=== PATIENT | male | born 1960 | race Caucasian/White ===

== ENCOUNTER 2020-08-18 08:00 | Outpatient (CLI) | payer MEDICARE, SELFPAY ==
--- NOTE | ~2020-08-18 | US_ITS ---
EXAMINATION: US right upper quadrant DATE: 08/18/2020 08:29 INDICATION: Hepatitis C. TECHNIQUE: Multiple grayscale and Doppler ultrasound images of the abdomen were obtained. COMPARISON: None FINDINGS: The visualized portions of the head and body of the pancreas are normal. The liver is dalton l without focal lesion. No liver surface nodularity. There is normal flow in main portal vein. The ga llbladder is normal in size. No gallstones or gallbladder wall thickening. There was no sonographic M urphy sign. The common duct is normal and measures 4 mm. IMPRESSION: 1. Normal right upper quadrant ultrasound. Reviewed, dictated and finalized at location A.
== END 2020-08-18 08:01 | disposition home or self-care (01) ==
PROVIDERS: PCP Emergency Medicine; Visit Provider Internal Medicine Infectious Disease
DX: B19.20 Unspecified viral hepatitis C without hepatic coma (principal)
CPT/HCPCS: 76705

== ENCOUNTER 2021-06-25 10:11 | Outpatient (CLI) | payer MEDICARE, SELFPAY ==
--- NOTE | ~2021-06-25 | XR_ITS ---
XR lumbar spine 2-3V 06/25/2021 10:47 Indication: Radiculopathy Procedure: 3 views lumbar spine Comparison: No prior studies for comparison. Findings: There is surgical changes consistent with anterior fusion and discectomy at L4-5 and L5-S1. No fracture, subluxation or dislocation. Prominent lateral marginal osteophytes at L2-3 and L3-4. Sa cral foramen are symmetric. There are facet hypertrophic changes at L4-5 and L5-S1. Impression: 1: Mild lower lumbar spondylosis with L4-5 and L5-S1. Reviewed, dictated and finalized at location A. Impression: 1: Mild lower lumbar spondylosis with L4-5 and L5-S1.
== END 2021-06-25 10:12 | disposition home or self-care (01) ==
LOC: CHSIMG 10:15
PROVIDERS: PCP Family Medicine; Visit Provider Pain Medicine Interventional Pain Medicine
DX: M54.16 Radiculopathy, lumbar region (principal); G89.4 Chronic pain syndrome; F17.210 Nicotine dependence, cigarettes, uncomplicated; M25.519 Pain in unspecified shoulder; F33.1 Major depressive disorder, recurrent, moderate; M46.1 Sacroiliitis, not elsewhere classified; M47.816 Spondylosis without myelopathy or radiculopathy, lumbar region
CPT/HCPCS: 72100

== ENCOUNTER 2022-01-05 07:53 | Outpatient (CLI) | payer MEDICARE, SELFPAY ==
--- NOTE | ~2022-01-05 | MR_ITS ---
EXAMINATION: MR lumbar spine wo con EXAM DATE: 01/05/2022 08:51 INDICATION: Radiculopathy, lumbar region. TECHNIQUE: Multi-sequential, multiplanar MR images of the lumbar spine were obtained without contrast . Sagittal T1, T2, T2 fat saturation images. Axial T2 weighted images. Comparison is made to prior examination from 07/20/2017. FINDINGS: Interbody fusions L4-5 and L5-S1. Probable prior L4 and L5 laminotomies. The vertebral bodi es are aligned in the AP dimension. Vertebral body and disc heights are well-maintained. The conus me dullaris terminates at the L1/2 level and has normal signal intensity and morphology. There are no s uspicious marrow signal abnormalities. Paraspinal soft tissue is unremarkable. Level by level evaluation: T12-L1: Disc does not extend beyond the endplate margin. Facet arthropathy: Mild. Neural foraminal stenosis: No stenosis. Central canal stenosis: No stenosis. L1-L2: Disc does not extend beyond the endplate margin. Facet arthropathy: Mild. Neural foraminal stenosis: No stenosis. Central canal stenosis: No stenosis. L2-L3: There is a minimal diffuse disc bulge. Facet arthropathy: Mild. Neural foraminal stenosis: Mild left. Central canal stenosis: No stenosis. L3-L4: There is a mild diffuse disc bulge. Facet arthropathy: Mild to moderate. Neural foraminal stenosis: Mild left, minimal right. Central canal stenosis: No stenosis. L4-L5: This level is fused. Facet arthropathy: Partially fused. Neural foraminal stenosis: No stenosis. Central canal stenosis: No stenosis. L5-S1: This level is fused. Facet arthropathy: Mild to moderate, but probably partially fused. Neural foraminal stenosis: Mild to moderate right, mild left. Central canal stenosis: No stenosis. Compared to 2017 difficult to appreciate any significant interval change. IMPRESSION: 1. L4-S1 fusion, probable laminotomies. 2. Mild to moderate lumbar arthropathy. Reviewed, dictated and finalized at location G. [employer]
== END 2022-01-05 07:54 ==
PROVIDERS: Visit Provider Pain Medicine Interventional Pain Medicine
DX: M54.17 Radiculopathy, lumbosacral region (principal); Z98.1 Arthrodesis status; M12.88 Other specific arthropathies, not elsewhere classified, other specified site
CPT/HCPCS: 72148

== ENCOUNTER 2022-06-01 07:46 | Outpatient (CLI) | payer MEDICARE, SELFPAY ==
--- NOTE | ~2022-06-01 | XR_ITS ---
EXAMINATION: XR lumbar spine 2-3V, XR sacroiliac joints min 3V DATE: 06/01/2022 08:18 INDICATION: Radiculopathy . Sacroiliitis. TECHNIQUE: 1. Anteroposterior and lateral views of the lumbar spine, and cone-down lateral view of the lumbosacr al junction were obtained. 2. AP and left and right oblique views of the sacroiliac joints were obtained. COMPARISON: Lumbar spine MR dated 01/05/[address] dated 11/23/2013 FINDINGS: Lumbar spine: Instrumented anterior spinal fusion at L4-L5 and L5-S1 with bone graft cages and fixation plate and s crews at both of these solidly fused disc spaces. Likely bilateral hemilaminotomies at L5-S1. Chronic mild anterior wedging of a transitional L1 segment with tiny right-sided hypoplastic riblet. Remaini ng vertebral body heights are normal. No fracture. Disc spaces are normal with a few scattered small endplate osteophytes. Sacroiliac joints: Sacral arches are intact. Mild bilateral sacroiliac osteoarthritis. No erosions to suggest an inflamm atory sacroiliitis. Mild bilateral hip osteoarthritis. IMPRESSION: 1. L4-S1 instrumented anterior spinal fusion. 2. Mild bilateral sacroiliac osteoarthritis. No erosions to suggest inflammatory sacroiliitis. Reviewed, dictated and finalized at location B. IMPRESSION: 1. L4-S1 instrumented anterior spinal fusion. 2. Mild bilateral sacroiliac osteoarthritis. No erosions to suggest inflammator y sacroiliitis.
== END 2022-06-01 07:47 | disposition home or self-care (01) ==
LOC: CHSIMG 07:48
PROVIDERS: PCP Family Medicine; Visit Provider Pain Medicine Interventional Pain Medicine
DX: M54.17 Radiculopathy, lumbosacral region (principal); M46.1 Sacroiliitis, not elsewhere classified; G89.4 Chronic pain syndrome; M25.519 Pain in unspecified shoulder
CPT/HCPCS: 72100; 72202

== ENCOUNTER 2022-09-12 14:59 | Emergency (ER) | payer MEDICARE, SELFPAY ==
--- NOTE | ~2022-09-12 | XR_ITS ---
XR wrist RT w scaphoid 09/12/2022 15:20 Indication: Right wrist pain. Twisting injury. Procedure: 4 views of the right wrist Comparison: No prior studies for comparison. Findings: There is chondrocalcinosis. No acute fracture or traumatic malalignment. No significant sof t tissue abnormality. No foreign bodies. Impression: 1: No acute fracture. 2: Chondrocalcinosis. Reviewed, dictated and finalized at location B. Impression: 1: No acute fracture. 2: Chondrocalcinosis.
[2022-09-12 15:05] VITALS: BP 108/86; PULSE 109; RESP 16; TEMP 36.9
--- NOTE | 2022-09-12 15:10 | ED.GENADULT ---
HPI - General Adult General Chief complaint: Extremity Injury, Upper Stated complaint: Right hand pain Time Seen by Provider: 09/12/22 15:01 History of Present Illness HPI narrative: Chaz is a 62M with a PMH of smoking and coronary artery calcification that presented to the ED with pain in his right wrist. He was using and impact drill and drilling when it kicked back. He had immediate pain and swelling. He has no other injuries or concerns. Related Data Home Medications Medication Instructions Recorded Confirmed hydrocodone 10 mg-acetaminophen 1 tablet PO Q8H PRN 09/29/19 325 mg tablet ([place]) Allergies Allergy/AdvReac Type Severity Reaction Status Date / Time No Known Allergies Allergy Mild Verified 09/12/22 15:09 Review of Systems Review of Systems: All systems reviewed & are unremarkable except as noted in HPI and below PMFSH Past Medical History Medical History Arthritis Surgical History Surgical History H/O hand surgery H/O knee surgery H/O shoulder surgery Previous back surgery Family History Family History Father Malignant neoplasm of prostate Mother Family history of primary malignant neoplasm of liver Social History Social History Smoking status: Current every day smoker Alcohol intake: current Exam Const: General: healthy appearing and no acute distress Nutritional Appearance: well nourished Orientation/consciousness: patient oriented x3 Limitations: no limitations HENMT: Head: normal to inspection Ears: external ears normal Face/Nose/Sinus: Normal external nose present Eyes: Conjunctivae: conjunctivae normal Pupils: Equal, round and reactive pupils present Neck: Neck: normal visual inspection Chest: Chest palpation & inspection: normal inspection of the chest Resp: Effort & Inspection: normal respiratory effort Cardio: Rate: regular rate Skin: General skin exam: normal color Neuro: General: patient oriented x3 and moves all extremities Extrem: Other: Right wirst is TTP on the medial side and a bit swollen. He has sensation in all his fingers and strong radial pulse Psych: Mental Status: mental status grossly normal Course Course Emergency Course: Declined pain meds. XR wrist RT w scaphoid 09/12/2022 15:20 Indication: Right wrist pain. Twisting injury. Procedure: 4 views of the right wrist Comparison: No prior studies for comparison. Findings: There is chondrocalcinosis. No acute fracture or traumatic malalignment. No significant soft tissue abnormality. No foreign bodies. Impression: 1: No acute fracture. 2:? Chondrocalcinosis. Vital Signs Vital signs: Vital Signs Temperature 98.5 F 09/12/22 15:05 Pulse Rate 109 H 09/12/22 15:05 Respiratory Rate 16 09/12/22 15:05 Blood Pressure 108/86 09/12/22 15:05 Temperature 98.5 F 09/12/22 15:05 Pulse Rate 109 H 09/12/22 15:05 Respiratory Rate 16 09/12/22 15:05 Blood Pressure 108/86 09/12/22 15:05 Medical Decision Making Vital Signs Vital Signs: Vital Signs Temperature 98.5 F 09/12/22 15:05 Pulse Rate 109 H 09/12/22 15:05 Respiratory Rate 16 09/12/22 15:05 Blood Pressure 108/86 09/12/22 15:05 Temperature 98.5 F 09/12/22 15:05 Pulse Rate 109 H 09/12/22 15:05 Respiratory Rate 16 09/12/22 15:05 Blood Pressure 108/86 09/12/22 15:05 Discharge Plan Discharge Clinical Impression: Right wrist sprain Patient Disposition: Home, Self-Care Condition: Stable Instructions: Wrist Sprain (ED) Prescriptions: No Action hydrocodone-acetaminophen [[place]] 10-325 mg tablet 1 tablet PO Q8H PRN (Reason: Pain) Rx Instructions: take po TID Follow-up/Referrals: Vane,MD Arcenio [Primary Care Pr
[2022-09-12 15:38] VITALS: BP 108/86; PULSE 109; RESP 16; TEMP 36.9; O2SAT 97
== END 2022-09-12 15:39 | disposition home or self-care (01) ==
PROVIDERS: Emergency Provider Family Medicine; PCP Family Medicine
DX: S63.501A Unspecified sprain of right wrist, initial encounter (principal); W22.8XXA Striking against or struck by other objects, initial encounter
CPT/HCPCS: 73110; 99283

== ENCOUNTER 2023-09-03 10:52 | Outpatient (CLI) | payer MEDICARE, SELFPAY ==
--- NOTE | ~2023-09-03 | XR_ITS ---
Lumbosacral Spine: AP and lateral views Clinical History: Pain COMPARISON: 06/01/2022 Findings: No acute fracture or subluxation identified. There is stable fusion from L4 through S1. Mil d chronic anterior wedging deformity of L1 is present, similar to prior exam. There is moderate to ad vanced facet joint degenerative change at the lower lumbar spine. The sacroiliac joints are normally outlined. Impression: No acute abnormality. Stable postfusion changes from L4 through S1. Stable degenerative changes, as above. Reviewed, dictated and finalized at location M. Impression: No acute abnormality. Stable postfusion changes from L4 through S1. Stable degenerative changes, as above.
== END 2023-09-03 10:53 | disposition home or self-care (01) ==
PROVIDERS: PCP Family Medicine
DX: M47.26 Other spondylosis with radiculopathy, lumbar region (principal); M47.23 Other spondylosis with radiculopathy, cervicothoracic region; M47.22 Other spondylosis with radiculopathy, cervical region; M46.1 Sacroiliitis, not elsewhere classified; F33.1 Major depressive disorder, recurrent, moderate; F17.210 Nicotine dependence, cigarettes, uncomplicated; Z98.1 Arthrodesis status
CPT/HCPCS: 72100

== ENCOUNTER 2023-11-29 00:24 | Day surgery (SDC) | payer MEDICARE, SELFPAY ==
[2023-11-05 13:53] VITALS: BMI 27.4
--- NOTE | 2023-11-27 11:25 | SUR.PREOP ---
Patient called regarding upcoming procedure. Reviewed preop instructions, appointment times, and procedure prep.
[2023-11-29 10:45] VITALS: BP 129/73; PULSE 99; RESP 16; TEMP 35.9; O2SAT 100
[2023-11-29] MEDS: LACTATED RINGERS 1,000 ML 150 ML IV CONT (10:56)
--- NOTE | 2023-11-29 11:35 | P.PNAN_ITS ---
Anes - Initial Pre Proc Eval Procedure: Operation Date: 11/29/23 11:30 Proposed Procedures p Screening Colonoscopy - Severiano Way MD Date/Time: 11/29/23 11:35 Surgeon: Severiano Way MD Pre Op Diagnosis: neoplasm screening Patient Data Age: 63 Gender: M Height: 1.73 m Weight: 85.4 kg Last Vital Signs Temp 96.6 F L 11/29/23 10:45 Pulse 99 11/29/23 10:45 Resp 16 11/29/23 10:45 BP 129/73 11/29/23 10:45 Pulse Ox 100 11/29/23 10:45 O2 Del Method Room Air 11/29/23 10:45 Allergies Allergy/AdvReac Type Severity Reaction Status Date / Time No Known Allergies Allergy Mild Verified 11/29/23 10:44 Home Medications Medication Instructions Recorded Confirmed Type hydrocodone 10 mg-acetaminophen 1 tablet PO Q8H PRN Pain 09/29/19 11/29/23 History 325 mg tablet ([place]) Patient hx anesthesia problems: none Family hx anesthesia problems: none Results Review: All pre-operative results and documents have been reviewed as part of the pre- operative evaluation. [facility] Past Medical History Medical History Arthritis Surgical History Surgical History H/O hand surgery H/O knee surgery H/O shoulder surgery Previous back surgery Family History Family History Father Malignant neoplasm of prostate Mother Family history of primary malignant neoplasm of liver Social History Social History Smoking packs per day: 1 Smoking cigarettes per day: 20.0 Years smoked: 20 Smoking pack-years: 20.00 Smoking status: Current every day smoker Tobacco type: cigarettes Alcohol intake: current Drinks per week: 3 Substance use: current Substance use type: marijuana Other substance usage details: daily Living arrangements: with friend(s) Spiritual care concerns: No Anes - Eval Final PreProcedure Day of Procedure 11/29/23 11:35 Patient weight: obese Heart: regular rate and rhythm Lungs: clear to auscultation Airway: Mallampati scale class II Neurological: alert and oriented Last oral intake: >/= 8 hours ASA classification: III Emergent: no Anesthetic plan: proceed Anesthesia type and monitoring: general GIVS and standard monitoring Results Review: All pre-operative results and documents have been reviewed as part of the pre- operative evaluation. Informed Consent: The patient's anesthetic plan and its attendant risks and benefits were discussed with the patient/family/POA. Questions were solicited and answers provided to the satisfaction of the patient/family/POA.
--- NOTE | 2023-11-29 11:43 | PM.HPGS ---
History of Present Illness History of Present Illness Consent: Risks, benefits, and alternatives have been discussed and questions answered. Patient agrees to proceed with procedure. Chief complaint: neoplasm screening Narrative: Chaz Allen Jr. is a 63 year old male here for first screening colonoscopy Review of Systems Constitutional: Constitutional: Denies headache(s) and Denies weakness Eyes: Eyes: Denies blurry vision ENT: Reports Normal hearing present, Denies headache(s) and Denies neck pain Cardiovascular: Cardiovascular: Denies chest pain and Denies dyspnea Respiratory: Respiratory: Denies dyspnea Gastrointestinal: Gastrointestinal: Reports no additional gastrointestinal complaints Genitourinary: Genitourinary: Denies dysuria Musculoskeletal: Musculoskeletal: Denies neck pain Integumentary/Breasts: Skin/Breast: Denies dry skin Neurologic: Reports Normal hearing present, Denies headache(s) and Denies weakness Psychiatric: Psychiatric: Denies anxiety Endocrine: Endocrine: Denies change in body appearance Hematologic/Lymphatic: Hematologic/Lymphatic: Denies easy bleeding Allergic/Immunologic: Allergic/Immunologic: Denies urticaria [facility] [place] Past Medical History Medical History (Updated 11/29/23 @ 11:[address] MD) Arthritis Colon cancer screening Surgical History Surgical History H/O hand surgery H/O knee surgery H/O shoulder surgery Previous back surgery Family History Family History Father Malignant neoplasm of prostate Mother Family history of primary malignant neoplasm of liver Social History Social History Smoking packs per day: 1 Smoking cigarettes per day: 20.0 Years smoked: 20 Smoking pack-years: 20.00 Smoking status: Current every day smoker Tobacco type: cigarettes Alcohol intake: current Drinks per week: 3 Substance use: current Substance use type: marijuana Other substance usage details: daily Living arrangements: with friend(s) Spiritual care concerns: No Meds Home Medications and Allergies Home Medications Medication Instructions Recorded Confirmed Type hydrocodone 10 mg-acetaminophen 1 tablet PO Q8H PRN Pain 09/29/19 11/29/23 History 325 mg tablet ([place]) Allergies Allergy/AdvReac Type Severity Reaction Status Date / Time No Known Allergies Allergy Mild Verified 11/29/23 10:44 Vital Signs Vital Signs - 24 hr 11/29/23 10:45 Temperature 96.6 F L Pulse Rate 99 Respiratory Rate 16 Blood Pressure 129/73 Pulse Oximetry 100 Oxygen Delivery Room Air Exam Const: General: comfortable and no acute distress HENMT: Face/Nose/Sinus: Normal nares present Eyes: General: appearance normal, both eyes and all related structures Neck: Neck: no JVD Resp: Auscultation: clear to auscultation bilaterally Cardio: Rate: regular rate Rhythm: regular rhythm GI: Inspection: non-distended GI Palp: Yes Soft to palpation Skin: General skin exam: normal color Neuro: General: gait normal Speech: normal speech Extrem: General: normal to inspection Psych: Mental Status: mental status grossly normal Assessment and Plan Assessment and plan (1) Colon cancer screening: Code(s): Z12.11 - Encounter for screening for malignant neoplasm of colon Status: Acute Assessment and Plan: colonoscopy
[2023-11-29 12:13] VITALS: BP 110/76; PULSE 84; RESP 22; O2SAT 96
[2023-11-29 12:23] VITALS: BP 127/81; PULSE 75; RESP 18; O2SAT 99
== END 2023-11-29 12:43 | disposition home or self-care (01) ==
PROVIDERS: PCP Family Medicine; Visit Provider Internal Medicine Gastroenterology
PROC: 0DJD8ZZ Inspection of Lower Intestinal Tract, Via Natural or Artificial Opening Endoscopic (ICD-10-PCS; CPT 45378; principal; 2023-11-29 11:30)
DX: Z12.11 Encounter for screening for malignant neoplasm of colon (principal); D12.2 Benign neoplasm of ascending colon; D12.3 Benign neoplasm of transverse colon; D12.4 Benign neoplasm of descending colon; D12.5 Benign neoplasm of sigmoid colon; F17.210 Nicotine dependence, cigarettes, uncomplicated; F12.90 Cannabis use, unspecified, uncomplicated; E66.9 Obesity, unspecified; Z68.28 Body mass index [BMI] 28.0-28.9, adult
CPT/HCPCS: 45385; 88305; 88342; J2704; J7120

== ENCOUNTER 2024-03-31 14:40 | Emergency (ER) | payer MEDICARE, SELFPAY ==
--- NOTE | ~2024-03-31 | XR_ITS ---
EXAM: XR shoulder RT min 2V DATE: 03/31/2024 15:04 HISTORY: FALL OUT OF TRUCK ONTO SHOULDER,PAIN,LROM . COMPARISON: None available. FINDINGS: Normal mineralization. No acute fracture or dislocation. No lytic or blastic lesion. Chron ic fragmentation of the tip of the acromion may represent an old fracture fragments or less likely a small os acromiale degenerative changes. Mild degenerative change at the AC joint and glenohumeral omar int. No erosion or periosteal change. Soft tissues within normal limits. IMPRESSION: No acute osseous finding in the right shoulder. Reviewed, dictated and finalized at location K.
[2024-03-31 14:39] VITALS: BP 153/92; PULSE 68; RESP 18; TEMP 36.5; O2SAT 99
--- NOTE | 2024-03-31 14:48 | ED.UPPEXIN ---
HPI - Extremity Injury (Upper) General Chief Complaint: Extremity Injury, Upper Stated Complaint: fall, right shoulder injury Source: patient Mode of arrival: ambulatory History of Present Illness HPI narrative: 63 YEARS OLD WHITE MALE LOST HIS BALANCE AND FELL OUT OF THE BACK OF HIS TRUCK WHILE IN A STOP POSITION, LANDED ABOUT 4 FT DOWN ON THE RIGHT SHOULDER. HE DENIES HEAD INJURY, NECK INJURY BACK INJURY OR OTHER INJURIES. COMPLAINING ONLY OF RIGHT SHOULDER PAIN WITH LIMITED RANGE OF MOTION. PATIENT DROVE HIMSELF TO THE EMERGENCY ROOM. Related Data Home Medications Medication Instructions Recorded Confirmed hydrocodone 10 mg-acetaminophen 1 tablet PO Q8H PRN Pain 09/29/19 03/31/24 325 mg tablet ([place]) Allergies Allergy/AdvReac Type Severity Reaction Status Date / Time No Known Allergies Allergy Mild Verified 11/29/23 10:44 Review of Systems Review of Systems: All systems reviewed & are unremarkable except as noted in HPI and below PMFSH Past Medical History Medical History Arthritis Colon cancer screening Surgical History Surgical History H/O hand surgery H/O knee surgery H/O shoulder surgery Previous back surgery Family History Family History Father Malignant neoplasm of prostate Mother Family history of primary malignant neoplasm of liver Social History Social History Smoking packs per day: 1 Smoking cigarettes per day: 20.0 Years smoked: 20 Smoking pack-years: 20.00 Smoking status: Current every day smoker Tobacco type: cigarettes Alcohol intake: current Drinks per week: 3 Substance use: current Substance use type: marijuana Other substance usage details: daily Living arrangements: with friend(s) Spiritual care concerns: No Exam Narrative: GENERAL APPEARANCE: WELL-DEVELOPED, WELL-NOURISHED SKIN: NORMAL COLOR HEAD: NORMOCEPHALIC, NONTRAUMATIC EYES: CLEAR CONJUNCTIVA ENT: OROPHARYNX NORMAL, EARS NORMAL, NOSE NORMAL NECK: SUPPLE, NONTENDER CHEST AND RESPIRATORY: AIRWAY PATENT, NO RESPIRATORY DISTRESS, NO ACCESSORY MUSCLE USE HEART: REGULAR RATE/RHYTHM ABDOMEN: SOFT, NONTENDER, NO ORGANOMEGALY, QUIET BOWEL SOUNDS VASCULAR: NORMAL PERIPHERAL PULSES, NORMAL CAPILLARY REFILL. MUSCULOSKELETAL: RIGHT SHOULDER EXAM SHOWED DIFFUSE TENDERNESS, NO DEFORMITY, NO BRUISES, MODERATE LIMITED RANGE OF MOTION. 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 Critical Care Time Critical Care Time Critical Care Time: No Discharge Plan Discharge Clinical Impression: Contusion of right shoulder Patient Disposition: Home, Self-Care Condition: Stable Instructions: Shoulder Pain (ED) Additional Instructions: RETURN IF SYMPTOMS ARE WORSENING , CALL YOUR FAMILY PHYSICIAN FOR APPOINTMENT, TAKE TYLENOL NEEDED FOR ACHES AND PAIN, CONTINUE HOME MEDICATIONS. ICE PACK 20 MINUTES/HOUR FOR THE NEXT 24 HOURS, TYLENOL, IBUPROFEN NEEDED Prescriptions: No Action hydrocodone-acetaminophen [[place]] 10-325 mg tablet 1 tablet PO Q8H PRN (Reason: Pain) Rx Instructions: take po TID Follow-up/Referrals: Vane,MD Arcenio [Primary Care Provider] -
--- NOTE | 2024-03-31 14:51 | PC.NURSE ---
patient is unable to raise right arm up. no deformity to shoulder noted.
--- NOTE | 2024-03-31 15:00 | PC.NURSE ---
patient taken to xray
[2024-03-31] MEDS: ACETAMINOPHEN 500 MG TABLET 1000 MG PO (15:03)
[2024-03-31] MEDS: IBUPROFEN 400 MG TABLET 800 MG PO (15:03)
== END 2024-03-31 15:33 | disposition home or self-care (01) ==
PROVIDERS: Emergency Provider Emergency Medicine; PCP Family Medicine
DX: S40.011A Contusion of right shoulder, initial encounter (principal); W17.89XA Other fall from one level to another, initial encounter; F17.210 Nicotine dependence, cigarettes, uncomplicated; F12.90 Cannabis use, unspecified, uncomplicated
CPT/HCPCS: 73030; 99283; A9270

== ENCOUNTER 2024-09-01 15:38 | Emergency (ER) | payer MEDICARE, SELFPAY ==
--- NOTE | ~2024-09-01 | XR_ITS ---
EXAMINATION: XR finger 3rd LT min 2V DATE: 09/01/2024 16:09 INDICATION: Left hand third digit laceration. TECHNIQUE: 3 views of left hand third digit were obtained. COMPARISON: None. FINDINGS: Alignment is normal. No fracture. There is mild osteoarthritis of third metacarpophalangeal joint and proximal interphalangeal joint and moderate osteoarthritis of third distal interphalangeal joint. There is heterotopic ossification ulnar to third distal interphalangeal joint. No radiopaque foreign body. IMPRESSION: 1. Polyarticular osteoarthritis. Reviewed, dictated and finalized at location A.
--- NOTE | 2024-09-01 15:42 | ED.GENADULT ---
HPI - General Adult General Chief complaint: Wound/Laceration Stated complaint: LACERATION Time Seen by Provider: 09/01/24 15:42 Source: patient Mode of arrival: other Limitations: no limitations History of Present Illness HPI narrative: 64-year-old white male caught his left nondominant hand long finger in on farm implement / header combine machine. This caused the longitudinal laceration over his 3rd finger PIP joint. Denies any numbness or weakness or loss of function. He is up-to-date on his Tdap. Denies any other injury or other complaints. Related Data Home Medications Medication Instructions Recorded Confirmed nortriptyline 50 mg capsule 50 mg PO DAILY 09/01/24 09/01/24 Allergies Allergy/AdvReac Type Severity Reaction Status Date / Time No Known Allergies Allergy Mild Verified 09/01/24 15:51 Review of Systems Review of Systems: All systems reviewed & are unremarkable except as noted in HPI and below PMFSH Past Medical History Medical History Arthritis Colon cancer screening Surgical History Surgical History H/O hand surgery H/O knee surgery H/O shoulder surgery Previous back surgery Family History Family History Father Malignant neoplasm of prostate Mother Family history of primary malignant neoplasm of liver Social History Social History Smoking packs per day: 1 Smoking cigarettes per day: 20.0 Years smoked: 20 Smoking pack-years: 20.00 Smoking status: Current every day smoker Tobacco type: cigarettes Alcohol intake: current Drinks per week: 3 Substance use: current Substance use type: marijuana Other substance usage details: daily Living arrangements: with friend(s) Spiritual care concerns: No Exam Narrative: White male patient with no apparent distress.? Head normocephalic, atraumatic.? Eyes conjunctiva pink sclera nonicteric.? Extraocular movements are intact.? Ears externally normal.? Left long finger has a 4 cm superficial laceration longitudinally with the center over the PIP joint. No foreign bodies were seen. He has good strong flexion extension of the finger. Light touch and pin point touch is normal. Capillary refills normal. He has full range of motion of all his fingers and hands and wrist. Extremities no cyanosis clubbing or edema.? Skin is warm and dry without rashes or lesions.? Neurological patient is alert and oriented x4.? Motor and sensory grossly intact.? Gait is normal. Course Vital Signs Vital signs: Vital Signs Temperature 36.6 C 09/01/24 15:47 Pulse Rate 99 09/01/24 15:47 Respiratory Rate 18 09/01/24 15:47 Blood Pressure 156/94 H 09/01/24 15:47 Pulse Oximetry 100 09/01/24 15:47 Oxygen Delivery Room Air 09/01/24 15:47 Temperature 36.6 C 09/01/24 15:47 Pulse Rate 99 09/01/24 15:47 Respiratory Rate 18 09/01/24 15:47 Blood Pressure 156/94 H 09/01/24 15:47 Pulse Oximetry 100 09/01/24 15:47 Oxygen Delivery Room Air 09/01/24 15:52 Medical Decision Making [facility] Narrative Medical decision making narrative: ? Patient placed in room: 7 ? History and physical was performed. Independent Historian: patient External Source Review: Differential Dx includes but not limited to: fracture dislocation foreign body Medications were Reviewed: home meds reviewed Medications given: Procedure Name: Laceration Repair Left long finger Indication: Reduce risk of infection Location: _ dorsal long finger___ Pre-Procedure Diagnosis: Laceration dorsal long finger 4 cm Post-Procedure Diagnosis: Repaired Laceration Informed consent was obtained before procedure started. PROCEDURE: The appropriate timeout was taken. The area was prepped and draped
[2024-09-01 15:47] VITALS: BP 156/94; PULSE 99; RESP 18; TEMP 36.6; O2SAT 100
[2024-09-01] MEDS: LIDOCAINE HCL 1% LOCAL INJ 10 ML VIAL 1.5 ML INFILTRATE (16:13)
[2024-09-01] MEDS: BUPivacaine HCL 0.5% 10 ML AMP 3 ML INFILTRATE (16:15)
[2024-09-01 17:45] VITALS: BP 148/86; PULSE 86; RESP 18; O2SAT 98
== END 2024-09-01 17:45 | disposition home or self-care (01) ==
PROVIDERS: Emergency Provider Emergency Medicine; PCP Family Medicine
DX: S61.213A Laceration without foreign body of left middle finger without damage to nail, initial encounter (principal); F17.210 Nicotine dependence, cigarettes, uncomplicated; Z79.899 Other long term (current) drug therapy; W45.8XXA Other foreign body or object entering through skin, initial encounter
CPT/HCPCS: 12002; 73140; 99283; J2003

== ENCOUNTER 2025-01-13 00:53 | Day surgery (SDC) | payer MEDICARE, SELFPAY ==
[2024-12-31 08:23] VITALS: BMI 25.9
--- OUTSIDE RECORDS SUMMARY | 2025-01-13 00:56 | XMS_ITS | Continuity of Care Document ---
Author Organization [facility] Address [address] [place] [address] [place] [address] Phone Care Team Providers Care Director Cpg Name Role Phone Aditya Davis MD Unavailable Unavailable Allergies, Adverse Reactions, Alerts Substance Reaction Status Criticality No Known Allergies Active No Inform ation Medications Medication Instructions Dosage Effective Dates (start - stop) Status Comments [place] 10 mg-325 mg tablet take 1 by Oral route 3 times every day as needed 1 - Active PRN for pain, avoid driving or operaet machines Procedures Procedure Date OFFICE/OUTPATIENT VISIT, EST PPPS, subseq visit OFFICE/OUTPATIENT VISIT, EST OFFICE/OUTPATIENT VISIT, EST OFFICE/OUTPATIENT VISIT, EST OFFICE/OUTPATIENT VISIT, EST PPPS, initial visit OFFICE/OUTPATIENT VISIT, NEW Advance Directives Directive Yes / No Effective Date File Name No Information Encounters Encounter Description Practice Location Reason(s) For Visit Diagnoses Date Provider Providers Copied on Encounter OFFICE/OUTPA TIENT VISIT, EST [facility], [address], [id number], [place] tel:[phone] [facility] COPD1 (chief complaint) CAD (chief complaint) gynecomast ia1 (chief complaint) hep C (chief complaint) Coronary artery disease of [place] coronary artery without angina pectorisEmphysemaGy necomastiaHepatitis C 201 [address] Ryan Burgess. [address], [place], [address] , [place]. tel:[phone] Referring Provider: Donavan Rhodes [address], [place], [place], [id number]. tel:[phone] OFFICE/OUTPA TIENT VISIT, [facility], [address], [place], [place], [address], [place] tel:[phone] [facility] Physical (chief complaint) Hepatitis CTobacco useEncounter for general adult medical exam w abnormal findingsChronic pain syndrome Sep-1 0-201 9 Ryan Burgess. [address], [place], [place], [address] , [place]. tel:[phone] Referring Provider: Donavan Rhodes [address], [place], [place], [id number]. tel:[phone] OFFICE/OUTPA TIENT VISIT, [facility], [address], [place], [place], [address], [place] tel:[phone] [facility] hep C (chief complaint) back pain1 (chief complaint) anxiety1 (chief complaint) Hepatitis CTobacco useChronic pain syndromeAnxiolytic dependence March-0 9-201 8 Ryan Burgess. [address], [place], [place], [address] , [place]. tel:[phone] Referring Provider: Donavan Rhodes [address], [place], [place], [address]. tel:[phone] OFFICE/OUTPA TIENT VISIT, [facility], [address], [place], [place], [address], [place] tel:[phone] [facility] hep C (chief complaint) chronic pain1 (chief complaint) tobacco1 (chief complaint) anxiety1 (chief complaint) Hepatitis CChronic pain syndromeAnxiolytic dependenceTobacco use Jan-2 201 8 Ryan Burgess. [address], [place], [place], [address] , [place]. [phone] Referring Provider: Donavan Rhodes [address], [place], [place], [address]. tel:[phone] OFFICE/OUTPA TIENT VISIT, [facility], [address], [place], [place], [address], [place] tel:[phone] [facility] PHysical (chief complaint) Essential (primary) hypertensionChronic pain syndromeEncounter for general adult medical exam w abnormal findingsEncounter for screening for other viral diseases 8 Ryan Burgess. [address], [place], [place], [address] , [place]. tel:[phone] Referring Provider: Donavan Rhodes [facility], [place], [place], [address]. tel:[phone] OFFICE/OUTPA TIENT VISIT, [facility], [address], [place], [place], [address], [place] tel:[phone] [facility] chronic pain (chief complaint) hemorrhoid 1 (chief complaint) anxitey1 (chief complaint) HemorrhoidChronic pain syndromeAnxiolytic dependence 8 Ryan Burgess. [address], [place], [place], [address] , [place]. tel:[phone] Referring Provider: Donavan Rhodes [facility], [place], [place], [address]. tel:[phone] Family History Family Member Type Diagnosis Age At Onset Sister Problem (finding) Alive and well Mother Problem (finding) Mother Problem (finding) liver CA Father Problem (finding) prostate CA (Cause Of D eath) 5 Payers Payer name Insurance type Covered alliance party ID Authoriza tion(s) No Information Social History Type Description Quantity Date Captured Comments Alcohol Use Details Caffeine Use Details Unknown Tobacco Use Status Cigarette smoker Smoking Status Heavy tobacco smoker Smoking Tobacco Use Details Cigarette: Age Started: 39, Years Used 20 Cigarette: 1.5 Packs per day, Pack Year: 30 Sex Male Vital Signs Date / Time: Height Weight BMI Pulse Rate Blood Pressure Temperature Respiratory Rate Body Surface Area Head Circumference BMI percentile Pulse Ox Inhaled Ox 11:42 AM 68.00 in 186.40 lbs 28.3 4 kg/m eter (2) 87 /min 135/80 mm[Hg] 97.5 F 18 /min Chief Complaint And Reason For Visit From encounter dated '08/31/2019 11:34'. COPD1 (chief complaint). Description: Pt has mild emphysema on CT scan pt denies any hemoptysis, sob or cough. Pt continues to smoke CAD (chief complaint). Description: Pt has signs of CAD on chest Ct pt denies any chest pain. gynecomastia1 (chief complaint). Description: Pt has gynecomastia on Ct scan pt denies any breast pain or nodule. hep C (chief complaint). Description: Pt has hep c pt is noncompliant with ultrasound and lab work and GI referral. Pt denies any abd pain Plan Of Treatment Date Type Action Status Goal Tobacco cessation counseling completed Goal Special diet education compl eted Goal Special diet education compl eted Goal Tobacco cessation counseling completed Goal Special diet education compl eted Goal Special diet education compl eted Referral Ordered: [facility]e -[facility] : Internal Medicine : Cardiovascular Disease (related to Coronary artery disease of [place] coronary artery without angina pectoris) ordered Referral Referred To: Levi Forte [address] [place], [place] [id number] Ordered: Referrals: [facility]opathic [facility] Osteopathic Physicians : Internal Medicine : Cardiovascular Disease. Levi Forte. Evaluate and treat ordered Referral Ordered: Gastroenterology (related to Hepatitis C) ordered Referral Ordered: Pain Medicine (related to Chronic pain syndrome) ordered Referral Ordered: Gastroenterology (related to Hepatitis C) ordered Referral Ordered: Referrals: Gastroenterology. Evaluate and treat ordered Referral Ordered: US EXAM, ABDOM, COMPLETE ordered Referral Ordered: Referrals: Pain Medicine. Evaluate and treat ordered Referral Ordered: CT THORAX W/O DYE ordered Referral Ordered: [facility] (related to Hemorrhoid) ordered Referral Referred To: [facility] [address] [place], [place] [id number] Ordered: Referrals: [facility]. Evaluate and treat ordered History Of Present Illness Encounter Date Complaint History Of Prese nt Illness COPD1 Pt has mild emph ysema on CT scan pt denies any hemoptysis, sob or cough. Pt continues to smoke CAD Pt has signs of CAD on chest Ct pt denies any chest pain. gynecomastia1 Pt has gynecomas tia on Ct scan pt denies any breast pain or nodule. hep C Pt has hep c pt is noncompliant with ultrasound and lab work and GI referral. Pt denies any abd pain Physical Pt needs annual physical, pt has hep C but he is extremely noncompliant with hep C treatment .Pt did not follow up with GI. Pt also has chronic low back pain, Pt takes norco PRN for pain and is seeing pain management. Pt denies any loss of bladder control, Pt denies any abd pain or jaundice, Pt denies any urinary symptoms. Pt denies any depression or anxiety and he is off xanax. Pt denies any other complaints hep C Pt has hep C Pt has appointment with Gi next week. Pt denies any abd pain. Pt has not done ultrasound or done the lab yet. Pt does not use IV drug back pain1 Pt has chronic l ow back pain. pt is seeing pain management and he is getting norco from pain management now anxiety1 Pt has chronic a nxiety. Pt denies any depression or any suicidal or homicidal thought. Pt denies any crying spells hep C Pt has active he p C. Pt does not use IV drug. Pt does not know how he gets the disease chronic pain1 Pt has chronic l ow back and neck pain Pt has history of lumbar surgery. Pt denies any worsening pain Pt denies any loss of bladder control. Pt denies any worsening neck pain. Pt states that norco TID is not enough for pain Pt has been running out. tobacco1 Pt has 30 pack y ear tobacco. Pt denies any sob. Pt needs lung CA screening anxiety1 Pt has chronic a nxiety. Pt denies any depression or any suicidal thought Pt denies any crying spells. Pt failed SSRi in the past PHysical Pt needs annual physical. Pt has chronic low back pain pt had back surgery x 5 Pt c/o sciatica and leg numbness. Pt denies any worsening pain. Pt denies any loss of bladder control. Pt failed NSAID and OTC meds. Pt has chronic anxiety Pt denies any depression or any suicidal thought Pt deneis any cyring spells. pt states that hemorrhoid resolved. Pt did not see surgeon. Pt has mild HTn. Pt denies any chest pain or headache. Pt denies any other complaitns. chronic pain pt has chronic l ow back pain. Pt had back surgery x 5. Pt had cage placed Lspine. Pt has work related injury many years ago. Pt has history of herniated disc and also vetebral fracture from fall. Pt has 7/10 low back pain. Pt c/o sciatica and leg numbness. Pt denies any loss of bladder control. Pt takes norco PRN for pain and doing ok. His PCP passed and his curent DRESS FITTER does not want to prescribe norco for termite inspector and informed him to find new MD. Pt had back injection in the past but did not work hemorrhoid1 Pt notices an ex ternal hermorrhoid for several days. pt denies any bleeding Pt notices pain. Pt denies any constipation anxitey1 Pt has chronic a nxiety Pt deneis any depression or any suicidal thought. Pt denies any cyring spells. Pt takes xanax 1 mg TID for years. His previous MD will not give him xanax. Pt has severe anxiety. Instructions Date Instruction Additional Infor savana Special diet education Related t o Body mass index (BMI) 28.0-28.9, adult Special diet education Related t o Body mass index (BMI) 28.0-28.9, adult Quit smoking Related to Hepat itis C Special diet education Related t o Body mass index (BMI) 29.0-29.9, adult Quit smoking Related to Hepat itis C Special diet education Related t o Body mass index (BMI) 29.0-29.9, adult Weight management Related to Enc ounter for general adult medical exam w abnormal findings Prescribed Activity and Exercise Education Related to Dietary Surveillance and Counseling Prescribed Diet Educ ation/Lifestyle Education Regarding Diet Related to Dietary Surveillance and Counseling Increase physical activity Relat ed to Encounter for general adult medical exam w abnormal findings Quit smoking Related to Hemor rhoid Prescribed Diet Educ ation/Lifestyle Education Regarding Diet Related to Dietary Surveillance and Counseling Prescribed Activity and Exercise Education Related to Dietary Surveillance and Counseling Assessments Type Assessment Date assessment Coronary artery dise ase of [place] coronary artery without angina pectoris assessment Emphysema assessment Gynecomastia assessment Hepatitis C Mental Status Date Cognitive Assessment Orientation - [place] ed to time, place, person, situation.
[2025-01-13 10:26] VITALS: BP 123/73; PULSE 66; RESP 18; TEMP 36.2; O2SAT 100; BMI 26.6
[2025-01-13] MEDS: LACTATED RINGERS 1,000 ML 150 ML IV CONT (10:38)
--- NOTE | 2025-01-13 10:46 | WPDANESEPPF ---
Anes - Initial Pre Proc Eval Procedure: Operation Date: 01/13/25 11:30 Proposed Procedures p Screening Colonoscopy - Guy Marroquin MD Date/Time: 01/13/25 10:46 Surgeon: Guy Marroquin MD Pre Op Diagnosis: malignant neoplasm of colon Patient Data Age: 64 Gender: M Height: 1.73 m Weight: 79.3 kg Last Vital Signs Temp 97.1 F L 01/13/25 10: Pulse 66 01/13/25 10:26 Resp 18 01/13/25 10:26 BP 123/73 01/13/25 10:26 Pulse Ox 100 01/13/25 10:26 O2 Del Method Room Air 01/13/25 10:26 Allergies Allergy/AdvReac Type Severity Reaction Status Date / Time No Known Allergies Allergy Mild Verified 01/13/25 10:25 Home Medications ?Medication ?Instructions ?Recorded ?Confirmed ?Type hydrocodone 10 mg-acetaminophen 1 tablet PO Q12H PRN pain 12/31/24 12/31/24 History 325 mg tablet Patient hx anesthesia problems: none Family hx anesthesia problems: none Results Review: All pre-operative results and documents have been reviewed as part of the pre-operative evaluation. [facility] Past Medical History Medical History Colon cancer screening Arthritis Surgical History Surgical History H/O knee surgery H/O shoulder surgery H/O hand surgery Previous back surgery Family History Family History Father Malignant neoplasm of prostate Mother Family history of primary malignant neoplasm of liver Social History Social History Smoking packs per day: 1 Smoking cigarettes per day: 20.0 Years smoked: 15 Smoking pack-years: 15.00 Smoking status: Current every day smoker Tobacco type: cigarettes Alcohol intake: former Drinks per week: 5 Substance use: current Substance use type: marijuana Other substance usage details: daily Last use: daily Living arrangements: with family Spiritual care concerns: No Anes - Eval Final PreProcedure Day of Procedure 01/13/25 10:46 Patient weight: normal Lungs: normal air movement Airway: Mallampati scale and special considerations (Upper partial. ) Neurological: alert and oriented Last oral intake: >/= 8 hours ASA classification: II Emergent: no Anesthetic plan: proceed Anesthesia type and monitoring: general GIVS and standard monitoring Results Review: All pre-operative results and documents have been reviewed as part of the pre-operative evaluation. Smoker 15 pack years. Informed Consent: The patient's anesthetic plan and its attendant risks and benefits were discussed with the patient/family/POA. Questions were solicited and answers provided to the satisfaction of the patient/family/POA.
--- NOTE | 2025-01-13 11:32 | P.HP_ITS ---
H&P: HPI History of Present Illness Date/Time: 01/13/25 11:32 Chief Complaint: History of colon polyps Narrative: the patient underwent a colonoscopy in November 2023, finding more than 7 polyps, some of the them large, all removed. He was advised to return at 1 year. Review of Systems Review of Systems: All systems reviewed & are unremarkable except as noted in HPI and below PMFSH Past Medical History Medical History Colon cancer screening Arthritis Surgical History Surgical History H/O knee surgery H/O shoulder surgery H/O hand surgery Previous back surgery Family History Family History Father Malignant neoplasm of prostate Mother Family history of primary malignant neoplasm of liver Social History Social History Smoking packs per day: 1 Smoking cigarettes per day: 20.0 Years smoked: 15 Smoking pack-years: 15.00 Smoking status: Current every day smoker Tobacco type: cigarettes Alcohol intake: former Drinks per week: 5 Substance use: current Substance use type: marijuana Other substance usage details: daily Last use: daily Living arrangements: with family Spiritual care concerns: No Meds Home Medications and Allergies Home Medications ?Medication ?Instructions ?Recorded ?Confirmed ?Type hydrocodone 10 mg-acetaminophen 1 tablet PO Q12H PRN pain 12/31/24 12/31/24 History 325 mg tablet Allergies Allergy/AdvReac Type Severity Reaction Status Date / Time No Known Allergies Allergy Mild Verified 01/13/25 10:25 Vital Signs Vital Signs - 24 hr 01/13/25 10:26 Temperature 97.1 F L Pulse Rate 66 Respiratory Rate 18 Blood Pressure 123/73 Pulse Oximetry 100 Oxygen Delivery Room Air Exam Const: General: cooperative and healthy appearing Resp: Effort & Inspection: normal respiratory effort and able to speak in complete sentences Auscultation: clear to auscultation bilaterally Cardio: Rate: regular rate Rhythm: regular rhythm GI: Inspection: normal to inspection GI Palp: No No hepatosplenomegaly pres ent Auscultation: normal bowel sounds Rectal Exam: deferred Skin: General skin exam: normal color Psych: Appearance: grossly normal Mental Status: mental status grossly normal Assessment and Plan Assessment and plan (1) Colon polyps: Qualifiers: Colon polyp type: adenomatous Colon location: unspecified part of colon Qualified Code(s): D12.6 - Benign neoplasm of colon, unspecified Code(s): K63.5 - Polyp of colon Status: Acute Assessment and Plan: The patient is deemed a good candidate for the procedure. Consent signed. Will proceed.
[2025-01-13] MEDS: SIMETHICONE ORAL SUSPENSION 20 MG/0.3 ML 30 ML BOTTLE 0.6 ML IRRIGATION (11:48)
[2025-01-13 12:03] VITALS: BP 127/71; PULSE 74; RESP 31; O2SAT 100
[2025-01-13 12:13] VITALS: BP 127/81; PULSE 69; RESP 21; O2SAT 100
[2025-01-13 12:23] VITALS: BP 135/79; PULSE 68; RESP 22; O2SAT 100
== END 2025-01-13 12:29 | disposition home or self-care (01) ==
PROVIDERS: PCP Family Medicine; Visit Provider Internal Medicine Gastroenterology
PROC: 0DJD8ZZ Inspection of Lower Intestinal Tract, Via Natural or Artificial Opening Endoscopic (ICD-10-PCS; CPT 45378; principal; 2025-01-13 11:30)
DX: Z09 Encounter for follow-up examination after completed treatment for conditions other than malignant neoplasm (principal); K62.1 Rectal polyp; F17.210 Nicotine dependence, cigarettes, uncomplicated; Z79.891 Long term (current) use of opiate analgesic; F12.90 Cannabis use, unspecified, uncomplicated; Z98.890 Other specified postprocedural states; Z98.1 Arthrodesis status; Z86.0100 Personal history of colon polyps, unspecified; Z80.42 Family history of malignant neoplasm of prostate; Z80.0 Family history of malignant neoplasm of digestive organs
CPT/HCPCS: 45385; 88305; J2704; J7120

== ENCOUNTER 2025-11-01 14:03 | Outpatient (CLI) | payer MEDICARE, SELFPAY ==
--- NOTE | ~2025-11-01 | XR_ITS ---
XR lumbar spine 2-3V Indication: Low back pain Comparison: None Findings: Anterior fixation of L4-5 and L5-S1 with disc prostheses, the hardware is intact, no acute fracture. Minimal loss of the remaining disc heights. Soft tissues unremarkable Impression: Postsurgical changes Reviewed, dictated and finalized at location P. TOR TECH Impression: Postsurgical changes
== END 2025-11-01 14:04 | disposition home or self-care (01) ==
PROVIDERS: PCP Family Medicine; Visit Provider Pain Medicine Interventional Pain Medicine
DX: M54.16 Radiculopathy, lumbar region (principal); Z98.890 Other specified postprocedural states
CPT/HCPCS: 72100